=== PATIENT | female | born 1950 | race Caucasian/White ===

== ENCOUNTER 2021-05-06 06:31 | Outpatient (CLI) | payer MEDICARE ==
[~2021-05-06] VITALS: Ht 165 cm; Wt 60.5 kg
== END 2021-05-06 13:51 | disposition home or self-care (01) ==
LOC: PREOP 06:31
PROVIDERS: ATTEND Surgery
DX: Z01.818 Encounter for other preprocedural examination (principal)

== ENCOUNTER 2021-05-17 10:41 | Day surgery (SDC) | payer MEDICARE ==
[~2021-05-17] VITALS: Ht 165 cm; Wt 60.5 kg
[2021-05-17] VITALS (7 sets, daily range): BP systolic 85–144; BP diastolic 44–84
[2021-05-17] MEDS ORDERED: LACTATED RINGERS 1,000 ML IV STA (10:58)
[2021-05-17] MEDS ORDERED: LACTATED RINGERS 1,000 ML IV ONE (11:06)
[2021-05-17] MEDS ORDERED: PROPOFOL INJECTION 50 ML IV ONE (11:50)
--- NOTE | 2021-05-17 13:10 | Anesthesia-General Post-Op ---
MAC Patient Condition Mental Status/LOC: Same as Preop Cardiovascular: Satisfactory Nausea/Vomiting: Absent Respiratory: Satisfactory Pain: Controlled Complications: Absent Post Op Complications Complications None Follow Up Care/Instructions Patient Instructions None needed. Anesthesiology Discharge Order Discharge Order Patient is doing well, no complaints, stable vital signs, no apparent adverse anesthesia problems. No complications reported per nursing. JAVON HYDE CRNA May 17, 2021 13:10
--- NOTE | 2021-05-17 13:17 | Progress Note-Post Operative ---
Post-Operative Progess Note Surgeon (s)/Signal And Communications Maintainer (s) Surgeon MARU FUNES DO Signal And Communications Maintainer: MENDOZA Awan Pre-Operative Diagnosis + Cologuard Post-Operative Diagnosis rectal mass int hemorrhoids Procedure & Operative Findings Date of Procedure 05/17/21 Procedure Performed/Findings Colon with snare polypectomy Procedure note: After informed consent was obtained, the patient was brought to the endoscopy suite and placed in the bed in the left lateral decubitus position. She was administered IV sedation by the HIGHWAY PATROL PILOT, who then monitored her vitals the entire time, heart rate, blood pressure and pulse ox and the scope was inserted, started the colonoscopy. Pushed all the way into about 140 cm to get all the way to cecum, took a picture of the appendiceal orifice, noted the ileocecal valve and then slowly withdrew the scope, insufflating the circumferential tom looking the cecum, up the ascending colon to the hepatic flexure, then down the transverse colon, splenic flexure, into the descending colon, down into the sigmoid and finally into the rectum. In the rectum saw a mass or large polyp and elected to do hot snare to try and remove most of it. Took pictures and then retroflexed in the rectal vault, saw some minimal internal hemorrhoids and took a picture of this. The patient tolerated the procedure and she recovered in the endoscopy suite. Anesthesia Type IV sedation by HIGHWAY PATROL PILOT Estimated Blood Loss Estimated blood loss (mL): scant Specimens/Packing Specimens Removed rectal polyp MARU FUNES DO May 17, 2021 13:17
--- NOTE | 2021-05-17 13:18 | Endoscopy Discharge Instruct ---
Endo Procedure/Findings Findings 1.: Polyp 2.: Internal Hemorrhoids Discharge Instructions - Activity: You might feel a little sleepy until tomorrow. This is due to the medicine you received to relax you. Until tomorrow, you should: NOT drive a car, operate machinery or power tools. NOT drink any alcoholic beverages. NOT make any important decisions or sign importortant papers. Do not return to work until tomorrow, unless otherwise instructed. Resume previous activities tomorrow. Diet: Start by taking liquids. If you tolerate liquids, advance to solid food. 1.: Other Recommendation (Colonoscopy in 6-8 weeks) Notify Physician - If you experience excessive bleeding, unusual abdominal pain, fever, or chest pain, contact your doctor immediately. MARU FUNES DO May 17, 2021 13:18
== END 2021-05-17 13:40 | disposition home or self-care (01) ==
LOC: ENDO 10:41
PROVIDERS: ATTEND Surgery
DX: D12.8 Benign neoplasm of rectum (principal); R19.5 Other fecal abnormalities; K64.8 Other hemorrhoids; Z90.89 Acquired absence of other organs

== ENCOUNTER 2021-06-14 05:42 | Outpatient (CLI) | payer MEDICARE ==
[~2021-06-14] VITALS: Ht 165.1 cm; Wt 60.3 kg
== END 2021-06-14 12:44 | disposition home or self-care (01) ==
LOC: PREOP 05:42
PROVIDERS: ATTEND Surgery
DX: Z01.818 Encounter for other preprocedural examination (principal)

== ENCOUNTER 2021-06-21 08:31 | Day surgery (SDC) | payer MEDICARE ==
[~2021-06-21] VITALS: Ht 165.1 cm; Wt 60.3 kg
[2021-06-21] VITALS (8 sets, daily range): BP systolic 77–143; BP diastolic 45–84
[2021-06-21] MEDS ORDERED: LACTATED RINGERS 1,000 ML IV STA (08:39)
[2021-06-21] MEDS ORDERED: LACTATED RINGERS 1,000 ML IV ONE (08:49)
--- NOTE | 2021-06-21 09:08 | Progress Note-Pre Operative ---
Pre-Operative Progress Note H&P Reviewed The H&P was reviewed, patient examined and no changes noted. Time Seen by Provider: 09:06 Date H&P Reviewed: Jun 21, 2021 Time H&P Reviewed: 09:06 Pre-Operative Diagnosis: Large sigmoid polyp MARU FUNES DO Jun 21, 2021 09:08
[2021-06-21] MEDS ORDERED: MIDAZOLAM 2 MG/2 ML (VERSED) VIAL ONE (09:09)
[2021-06-21] MEDS ORDERED: PROPOFOL INJECTION 50 ML IV ONE (09:10)
--- NOTE | 2021-06-21 09:44 | Progress Note-Post Operative ---
Post-Operative Progess Note Surgeon (s)/Residential Treatment Counselor (s) Surgeon MARU FUNES DO Residential Treatment Counselor: MENDOZA Melgoza Pre-Operative Diagnosis Large rectal polyp Post-Operative Diagnosis same pending path Procedure & Operative Findings Date of Procedure 06/21/21 Procedure Performed/Findings Flex sig with snare removal of large polyp PROCEDURE NOTE: After informed consent was obtained, the patient was brought to the endoscopy suite, placed in bed in left lateral decubitus position. She was administered IV sedation by the INDUSTRIAL AERIAL INSTALLER who then monitored her vitals the entire time, heart rate, blood pressure and pulse ox and the scope was inserted. Immediately upon entering saw the large polyp and took a picture. Pushed up to just below splenic flexure and did not see anything else. Pulled back to the rectum about 10cm in and started removing the polyp with hot snare polypectomy. It was larger than a cm and had to take it in multiple pieces. Able to remove right down to the mucosa. I believe I got all of it and took a picture after. Then retroflexed and took picture of the internal hemorrhoids. Finally removed the scope The patient tolerated the procedure. She was recovered in endoscopy suite. Anesthesia Type IV sedation by INDUSTRIAL AERIAL INSTALLER Estimated Blood Loss Estimated blood loss (mL): scant Specimens/Packing Specimens Removed rectal polyp MARU FUNES DO Jun 21, 2021 09:44
--- NOTE | 2021-06-21 09:45 | Endoscopy Discharge Instruct ---
Endo Procedure/Findings Findings 1.: Polyp 2.: Internal Hemorrhoids Discharge Instructions - Activity: You might feel a little sleepy until tomorrow. This is due to the medicine you received to relax you. Until tomorrow, you should: NOT drive a car, operate machinery or power tools. NOT drink any alcoholic beverages. NOT make any important decisions or sign importortant papers. Do not return to work until tomorrow, unless otherwise instructed. Resume previous activities tomorrow. Diet: Start by taking liquids. If you tolerate liquids, advance to solid food. 1.: Colonoscopy in 1 year Notify Physician - If you experience excessive bleeding, unusual abdominal pain, fever, or chest pain, contact your doctor immediately. MARU FUNES DO Jun 21, 2021 09:45
--- NOTE | 2021-06-21 12:37 | Anesthesia-General Post-Op ---
MAC Patient Condition Mental Status/LOC: Same as Preop Cardiovascular: Satisfactory Nausea/Vomiting: Absent Respiratory: Satisfactory Pain: Controlled Complications: Absent Post Op Complications Complications None Follow Up Care/Instructions Patient Instructions None needed. Anesthesiology Discharge Order Discharge Order Patient is doing well, no complaints, stable vital signs, no apparent adverse anesthesia problems. No complications reported per nursing. OLYA OJEDA CRNA Jun 21, 2021 12:37
== END 2021-06-21 10:19 | disposition home or self-care (01) ==
LOC: ENDO 08:31
PROVIDERS: ATTEND Surgery
DX: D12.8 Benign neoplasm of rectum (principal); E78.00 Pure hypercholesterolemia, unspecified; Z79.899 Other long term (current) drug therapy; Z86.79 Personal history of other diseases of the circulatory system
CPT/HCPCS: 88305

== ENCOUNTER 2022-07-06 05:34 | Outpatient (CLI) | payer MEDICARE ==
[~2022-07-06] VITALS: Ht 165.1 cm; Wt 60.0 kg
[2022-07-06] MEDS ORDERED: BLAC200C3 PO (10:53)
[2022-07-06] MEDS ORDERED: MULT-178 PO (10:53)
[2022-07-06] MEDS ORDERED: TRIA10.8 NSEACH (10:53)
== END 2022-07-06 10:54 | disposition home or self-care (01) ==
LOC: PREOP 05:34
PROVIDERS: ATTEND Surgery
DX: Z01.818 Encounter for other preprocedural examination (principal)

== ENCOUNTER 2022-07-18 07:49 | Day surgery (SDC) | payer MEDICARE ==
[~2022-07-18] VITALS: Ht 165 cm; Wt 60.0 kg
[~2022-07-18 07:49] MED LIST: BLAC200C3 PO; MULT-178 PO; TRIA10.8 NSEACH
[2022-07-18] MEDS ORDERED: LACTATED RINGERS 1,000 ML IV STA (08:13)
[2022-07-18 08:20] VITALS: BP 158/78
[2022-07-18] MEDS ORDERED: PROPOFOL INJECTION 50 ML IV ONE (10:04)
[2022-07-18 10:40] VITALS: BP 83/48
[2022-07-18 10:45] VITALS: BP 102/50
--- NOTE | 2022-07-18 10:46 | Endoscopy Discharge Instruct ---
Endo Procedure/Findings Findings 1.: Polyp 2.: Internal Hemorrhoids Discharge Instructions - Activity: You might feel a little sleepy until tomorrow. This is due to the medicine you received to relax you. Until tomorrow, you should: NOT drive a car, operate machinery or power tools. NOT drink any alcoholic beverages. NOT make any important decisions or sign importortant papers. Do not return to work until tomorrow, unless otherwise instructed. Resume previous activities tomorrow. Diet: Start by taking liquids. If you tolerate liquids, advance to solid food. 1.: Colonscopy in 5 years Notify Physician - If you experience excessive bleeding, unusual abdominal pain, fever, or chest pain, contact your doctor immediately. MARU FUNES DO Jul 18, 2022 10:46
--- NOTE | 2022-07-18 10:46 | Progress Note-Post Operative ---
Post-Operative Progess Note Surgeon (s)/Chief Librarian Branch Or Department (s) Surgeon MARU FUNES DO Chief Librarian Branch Or Department: Corbin Brownlemuel, MSIII Pre-Operative Diagnosis Large rectal polyp Post-Operative Diagnosis Polyps int hemorrhoids Procedure & Operative Findings Date of Procedure 07/18/22 Procedure Performed/Findings Colonoscopy with hot bx Colonoscopy with snare PROCEDURE NOTE: After informed consent was obtained, the patient was brought to the endoscopy suite, placed in bed in left lateral decubitus position. She was administered IV sedation by the RN X RAY who then monitored her vitals the entire time, heart rate, blood pressure and pulse ox and the scope was inserted, pushed all the way to about 150 cm and pushed into the cecum. I took a picture of appendiceal orifice and noted the ileo-cecal valve. On the way in had noted some retained fecal materaial; was able to suction most up, but not all (took pictures). Then slowly withdrew the scope insufflating to look circumferentially at the tom starting in the cecum, up the ascending colon to the hepatic flexure, then down the transverse colon, to the splenic flexure and into the descending colon. I found a small flat polyp, that almost looked like it had an ulcerated middle. Elected to do a hot biopsy and took two bites; got most of the polyp. Continued down into the sigmoid and then into the rectal vault. Here I found a large almost pedunculated polyp that I wanted to completely remove; therefore, used the snare with cautery and able to get the entire polyp. Finally I retroflexed the scope and took a picture of the internal hemorrhoids. The patient tolerated the procedure. She was recovered in endoscopy suite. Recommended for repeat colonoscopy in 5 years. Anesthesia Type IV sedation by RN X RAY Estimated Blood Loss Estimated blood loss (mL): scant Specimens/Packing Specimens Removed Desc colon polyp rectal polyp MARU FUNES DO Jul 18, 2022 10:45
[2022-07-18 10:50] VITALS: BP 103/54
[2022-07-18 11:28] VITALS: BP 103/54
--- NOTE | 2022-07-18 14:05 | Anesthesia-General Post-Op ---
MAC Patient Condition Mental Status/LOC: Same as Preop Cardiovascular: Satisfactory Nausea/Vomiting: Absent Respiratory: Satisfactory Pain: Controlled Complications: Absent Post Op Complications Complications None Follow Up Care/Instructions Patient Instructions None needed. Anesthesiology Discharge Order Discharge Order Patient is doing well, no complaints, stable vital signs, no apparent adverse anesthesia problems. No complications reported per nursing. OLYA OJEDA CRNA Jul 18, 2022 14:05
== END 2022-07-18 11:26 | disposition home or self-care (01) ==
LOC: ENDO 07:49
PROVIDERS: ATTEND Surgery
DX: D12.4 Benign neoplasm of descending colon (principal); D12.8 Benign neoplasm of rectum; K64.8 Other hemorrhoids

== ENCOUNTER 2023-07-23 11:59 | Emergency (ER) | payer MEDICARE ==
[~2023-07-23] VITALS: Ht 162 cm; Wt 58.9 kg
[2023-07-23] MEDS ORDERED: NS IV 1000 ML 1,000 ML IV STA (12:23)
--- NOTE | 2023-07-23 12:23 | ED Abdominal Pain ---
General Chief Complaint: Abdominal/GI Problems Stated Complaint: AB PAIN Nursing Triage Note: ARRIVED VIA AMB WITH COMPLAINTS OF ABD PAIN STARTING YESTERDAY. Source of Information: Patient Exam Limitations: No Limitations History of Present Illness Date Seen by Provider: Jul 23, 2023 Time Seen by Provider: 12:12 Initial Comments 72-year-old female presents for right-sided abdominal pain, nausea and vomiting. Symptoms started last night. Emesis is nonbloody nonbilious. She does state that she has had decreased bowel movements and decreased urine output. She de nies any fevers or chills. Pain is described as sharp stabbing in her right lower abdomen without radiation. No obvious aggravating or alleviating factors. She is passing gas. She has not had any intra-abdominal surgeries. All other systems reviewed and negative except documented per HPI. Voice recognition software was used to help create this chart Allergies and Home Medications Allergies Coded Allergies: No Known Drug Allergies (Unverified , 05/17/21) Patient Home Medication List Home Medication List Reviewed: Yes Black Cohosh Root (Black Cohosh) 200 Mg Capsule, 200 MG PO DAILY, (Reported) Entered as Reported by: KAYLA OWUSU on 07/06/22 1053 Multivitamin (Multiple Vitamins) 1 Each Tablet, 1 EACH PO DAILY, (Reported) Entered as Reported by: KAYLA OWUSU on 07/06/22 1053 Triamcinolone Acetonide (Nasacort) 55 Mcg [place], 1 SPRAY NSEACH DAILY, (Reported) Entered as Reported by: KAYLA OWUSU on 07/06/22 1053 Review of Systems Review of Systems Constitutional: see HPI Past Vvjwvmh-Calegs-Jmzjeb Hx Patient Social History Tobacco Use?: No Substance use?: No Alcohol Use?: No Immunizations Up To Date First/Initial COVID19 Vaccinat: NO Second COVID19 Vaccination Octavio: NO Third COVID19 Vaccination Date: NO Seasonal Allergies Seasonal Allergies: Yes Past Medical History Surgeries: Yes (CARDIAC ABLATION) Tonsillectomy Respiratory: No Cardiac: Yes (HX ABLATION) Neurological: No Genitourinary: No Gastrointestinal: Yes Polyps Musculoskeletal: No Endocrine: No HEENT: No Cancer: No Psychosocial: No Integumentary: No Blood Disorders: No Physical Exam Vital Signs Vital Signs - First Documented 07/23/23 12:05 Temp 37.4 Pulse 66 Resp 16 B/P (MAP) 115/68 (84) Pulse Ox 98 O2 Delivery Room Air Capillary Refill : Less Than 3 Seconds Height/Weight/BMI Height: '" Weight: lbs. oz. kg; 22.00 BMI Method: General Appearance: WD/WN, no apparent distress HEENT: normal ENT inspection, pharynx normal Neck: non-tender, full range of motion Respiratory: chest non-tender, lungs clear, normal breath sounds, no respiratory distress, no accessory muscle use Cardiovascular: regular rate, rhythm, no murmur Gastrointestinal: normal bowel sounds, soft, tenderness (Tenderness palpation t he right mid and lower abdomen with voluntary guarding. No rebound tenderness. No mass organomegaly. No skin changes.) Extremities: normal capillary refill Neurologic/Psychiatric: alert, normal mood/affect Skin: normal color, warm/dry Progress/Results/Core Measures Results/Orders Lab Results Laboratory Tests Test 07/23/23 12:10 07/23/23 13:11 Range/Units White Blood Count 8.0 4.3-11.0 10^3/uL Red Blood Count 4.15 3.80-5.11 10^6/uL Hemoglobin 13.8 11.5-16.0 g/dL Hematocrit 41 35-52 % Mean Corpuscular Volume 98 80-99 fL Mean Corpuscular Hemoglobin 33 25-34 pg Mean Corpuscular Hemoglobin Concent 34 32-36 g/dL Red Cell Distribution Width 12.2 10.0-14.5 % Platelet Count 267 130-400 10^3/uL Mean Platelet Volume 9.9 9.0-12.2 fL Immature Granulocyte % (Auto) 0 % Neutrophils (%) (Auto) 88 H 42-75 % Lymphocytes (%) (Auto) 6 L 12-44 % Monocytes (%) (Auto) 5 0-12 % Eosinophils (%) (Auto) 0 0-10 % Basophils (%) (Auto) 0 0-10 % Neutrophils # (Auto) 7.1 1.8-7.8 10^3/uL Lymphocytes # (Auto) 0.5 L 1.0-4.0 10^3/uL Monocytes # (Auto) 0.4 0.0-1.0 10^3/uL Eosinophils # (Auto) 0.0 0.0-0.3 10^3/uL Basophils # (Auto) 0.0 0.0-0.1 10^3/uL Immature Granulocyte # (Auto) 0.0 0.0-0.1 10^3/uL Neutrophils % (Manual) 87 % Lymphocytes % (Manual) 9 % Monocytes % (Manual) 4 % Eosinophils % (Manual) 0 % Basophils % (Manual) 0 % Band Neutrophils 0 % Blood Morphology Comment NORMAL Sodium Level 132 L 135-145 MMOL/L Potassium Level 4.1 3.6-5.0 MMOL/L Chloride Level 99 98-107 MMOL/L Carbon Dioxide Level 20 L 21-32 MMOL/L Anion Gap 13 5-14 MMOL/L Blood Urea Nitrogen 20 H 7-18 MG/DL Creatinine 0.99 0.60-1.30 MG/DL Estimat Glomerular Filtration Rate 60 BUN/Creatinine Ratio 20 Glucose Level 143 H 70-105 MG/DL Calcium Level 9.8 8.5-10.1 MG/DL Corrected Calcium 8.5-10.1 MG/DL Total Bilirubin 0.4 0.1-1.0 MG/DL Aspartate Amino Transf (AST/SGOT) 41 H 5-34 U/L Alanine Aminotransferase (ALT/SGPT) 39 0-55 U/L Alkaline Phosphatase 71 40-136 U/L Total Protein 7.7 6.4-8.2 GM/DL Albumin 4.6 H 3.2-4.5 GM/DL Lipase 38 8-78 U/L Urine Color YELLOW Urine Clarity CLEAR Urine pH 7.0 5-9 Urine Specific [place] 1.015 L 1.016-1.022 Urine Protein 1+ H NEGATIVE Urine Glucose (UA) NEGATIVE NEGATIVE Urine Ketones NEGATIVE NEGATIVE Urine Nitrite NEGATIVE NEGATIVE Urine Bilirubin NEGATIVE NEGATIVE Urine Urobilinogen 0.2 < = 1.0 MG/DL Urine Leukocyte Esterase NEGATIVE NEGATIVE Urine RBC (Auto) 1+ H NEGATIVE Urine RBC 10-25 H /HPF Urine WBC 0-2 /HPF Urine Crystals NONE /LPF Urine Bacteria NEGATIVE /HPF Urine Casts NONE /LPF Urine Mucus NEGATIVE /LPF Urine Culture Indicated NO My Orders Orders - DANIELA SALVADOR DO Lipase (07/23/23 12:20) Ua Culture If Indicated (07/23/23 12:20) Ct Abdomen/Pelvis W (07/23/23 12:20) Cbc With Automated Diff (07/23/23 12:20) Comprehensive Metabolic Panel (07/23/23 12:20) Fentanyl Injection (Fentanyl Injection (07/23/23 12:30) Ondansetron Injection (Ondansetron Inj (07/23/23 12:30) Ns Iv 1000 Ml (Ns Iv 1000 Ml) (07/23/23 12:23) Manual Differential (07/23/23 12:10) Iohexol Injection (Omnipaque 350 Mg/Ml 1 (07/23/23 12:45) Received Contrast (Hold Metformin- Contr (07/23/23 12:45) Ns (Ivpb) 100 Ml (Sodium Chloride 0.9% 1 (07/23/23 12:45) Ketorolac Injection (Ketorolac Injection (07/23/23 13:45) Morphine Injection (Morphine Injection (07/23/23 13:34) Hydrocodone/Apap 5/325 Tablet (Hydrocod (07/23/23 13:45) Diphenhydramine Injection (Diphenhydram (07/23/23 14:00) Medications Given in ED Current Medications Medications Dose Ordered Sig/Hung Route Start Time Stop Time Status Last Admin Dose Admin Acetaminophen/ Hydrocodone Bitart 1 ea ONCE ONCE PO 07/23/23 13:45 07/23/23 13:46 DC 07/23/23 13:58 1 EA Diphenhydramine HCl 25 mg ONCE ONCE IVP 07/23/23 14:00 07/23/23 14:01 DC 07/23/23 13:56 25 MG Fentanyl Citrate 50 mcg ONCE ONCE IVP 07/23/23 12:30 07/23/23 12:31 DC 07/23/23 12:31 50 MCG Iohexol 75 ml ONCE ONCE IV 07/23/23 12:45 07/23/23 12:51 DC 07/23/23 13:00 67 ML Ketorolac Tromethamine 15 mg ONCE ONCE IVP 07/23/23 13:45 07/23/23 13:46 DC 07/23/23 13:48 15 MG Ondansetron HCl 4 mg ONCE ONCE IVP 07/23/23 12:30 07/23/23 12:31 DC 07/23/23 12:32 4 MG Sodium Chloride 100 ml ONCE ONCE IV 07/23/23 12:45 07/23/23 12:51 DC 07/23/23 13:00 100 ML Vital Signs/I&O 07/23/23 12:05 Temp 37.4 Pulse 66 Resp 16 B/P (MAP) 115/68 (84) Pulse Ox 98 O2 Delivery Room Air Blood Pressure Mean: 84 Departure Communication (Admissions) Patient is hemodynamically stable. Initially with significant pain in her right mid abdomen. Concern initially for some type of colitis, appendicitis. CT scan reveals likely kidney stone on that side. She is still making urine she has no evidence for UTI based on urinalysis. Labs are reassuring with normal chemistr y, CBC. Pain is controlled here in the emergency department after Toradol morphine, hydrocodone. Nausea is controlled with Zofran and Benadryl. Impression Primary Impression: Ureterolithiasis Disposition: HOME, SELF-CARE Condition: Stable Departure-Patient Inst. Referrals: JOSE HERNÁNDEZ DO (PCP) Primary Care Physician Patient Instructions: Kidney stones in adults Add. Discharge Instructions: Increase your fluids at home and rest. Take Flomax daily as prescribed. Use hydrocodone as needed for pain. This may make you drowsy so do not drive or make important decisions while taking it. Have given you Zofran which dissolves under your tongue as needed for nausea. I also recommend use Benadryl, 50 mg every 6 hours as needed for nausea. This will likely make you drowsy. Return to the emergency department for any severe pain is not controlled by the provided medications. Follow-up with your primary doctor for any nonemergent needs. All discharge instructions reviewed with patient and/or family. Voiced understanding. Scripts Tamsulosin HCl (Flomax) 0.4 Mg Cap 0.4 MG PO DAILY for 3 Days, #3 CAP Prov: DANIELA SALVADOR DO 07/23/23 Ondansetron (Ondansetron Odt) 8 Mg Tab.rapdis 8 MG SL Q6H PRN for NAUSEA/VOMITING for 3 Days, #12 TAB Prov: DANIELA SALVADOR DO 07/23/23 Hydrocodone/Acetaminophen (Hydrocodone-Acetamin 5-325 mg) 5 Mg-325 Mg Tablet 1 TAB PO Q4H PRN for PAIN-MODERATE (5-7) for 3 Days, #12 TAB Prov: DANIELA SALVADOR DO 07/23/23 DANIELA SALVADOR DO Jul 23, 2023 12:23
[2023-07-23 12:28] LABS: BASOPHILS % (AUTO) 0 % (0-10); EOSINOPHILS % (AUTO) 0 % (0-10); HEMATOCRIT 41 % (35-52); HEMOGLOBIN 13.8 g/dL (11.5-16.0); LYMPHOCYTES # (AUTO) 0.5 10^3/uL (1.0-4.0); LYMPHOCYTES % (AUTO) 6 % (12-44); MEAN CORPUSCULAR HEMOGLOBIN 33 pg (25-34); MEAN CORPUSCULAR HGB CONC 34 g/dL (32-36); MEAN CORPUSCULAR VOLUME 98 fL (80-99); MEAN PLATELET VOLUME 9.9 fL (9.0-12.2); MONOCYTES # (AUTO) 0.4 10^3/uL (0.0-1.0); MONOCYTES % (AUTO) 5 % (0-12); NEUTROPHILS # (AUTO) 7.1 10^3/uL (1.8-7.8); NEUTROPHILS % (AUTO) 88 % (42-75); PLATELET COUNT 267 10^3/uL (130-400)
[2023-07-23] MEDS ORDERED: ONDANSETRON INJECTION 4 MG/2 ML (SDV) IVP ONE (12:30)
[2023-07-23] MEDS ORDERED: fentaNYL INJECTION 100 MCG/2 ML VIAL IVP ONE (12:30)
[2023-07-23 12:36] LABS: ALBUMIN 4.6 GM/DL (3.2-4.5)
[2023-07-23 12:37] LABS: CHLORIDE 99 MMOL/L (98-107); POTASSIUM 4.1 MMOL/L (3.6-5.0); SODIUM 132 MMOL/L (135-145)
[2023-07-23 12:38] LABS: CALCIUM 9.8 MG/DL (8.5-10.1)
[2023-07-23 12:39] LABS: GLUCOSE 143 MG/DL (70-105); TOTAL PROTEIN 7.7 GM/DL (6.4-8.2)
[2023-07-23 12:40] LABS: CARBON DIOXIDE 20 MMOL/L (21-32)
[2023-07-23 12:41] LABS: BILIRUBIN,TOTAL 0.4 MG/DL (0.1-1.0)
[2023-07-23 12:42] LABS: ALKALINE PHOSPHATASE 71 U/L (40-136)
[2023-07-23 12:43] LABS: BAND NEUTROPHILS 0 %; BASOPHILS % (MANUAL) 0 %; CREATININE SERUM 0.99 MG/DL (0.60-1.30); EOSINOPHILS % (MANUAL) 0 %; GFR ESTIMATED 60; LYMPHOCYTES % (MANUAL) 9 %; MONOCYTES % (MANUAL) 4 %; NEUTROPHILS % (MANUAL) 87 %; RBC MORPH NORMAL
[2023-07-23 12:44] LABS: BUN/CREATININE RATIO 20
[2023-07-23] MEDS ORDERED: NS 100 ML (IVPB) BAG IV ONE (12:45)
[2023-07-23] MEDS ORDERED: IOHEXOL 350 MG/ML 100 ML (OMNIPAQUE 350) VIAL IV ONE (12:45)
[2023-07-23] MEDS ORDERED: HOLD METFORMIN - RECEIVED CONTRAST 20 ML VIAL IV SCH (12:45)
[2023-07-23 12:46] LABS: ALANINE AMINOTRANSFERASE 39 U/L (0-55); LIPASE 38 U/L (8-78)
--- NOTE | 2023-07-23 13:25 | Diagnostic Imaging Report ---
PROCEDURE: CT abdomen and pelvis with contrast. TECHNIQUE: Multiple contiguous axial images were obtained through the abdomen and pelvis after administration of intravenous contrast. Auto Exposure Controls were utilized during the CT exam to meet ALARA standards for radiation dose reduction. All CT scans use one or more of the following dose optimizing techniques: automated exposure control, MA and/or KvP adjustment based on patient size and exam type or iterative reconstruction. INDICATION: Right-sided abdominal pain, acute onset. COMPARISON: None available. FINDINGS: Minimal bibasilar scarring and/or atelectasis. Tiny hiatal hernia. The liver, spleen, adrenal glands, and pancreas are unremarkable. Punctate nonobstructing left renal calculus. The left kidney and ureter are otherwise unremarkable. A 0.6 cm calculus is identified within the right ureteropelvic junction. This is resulting in moderate right-sided hydronephrosis with significant adjacent right perinephric fat stranding and fluid. This fluid extends down the right paracolic gutter. Moderate vascular calcifications without aneurysmal dilatation of the abdominal aorta. The appendix is unremarkable. The urinary bladder is unremarkable. The uterus and adnexal structures are unremarkable for age. Moderate amount of stool within the proximal to mid colon. No abnormally dilated loops of small bowel. No significant adenopathy or free air. Small amount of free fluid. Scattered osseous degenerative changes without acute osseous abnormality. IMPRESSION: 0.6 cm calculus within the right ureteropelvic junction with resultant moderate right-sided hydronephrosis and obstructive uropathy with a significant amount of adjacent right perinephric fat stranding and free fluid. Tiny nonobstructing left renal calculus. Tiny hiatal hernia. Moderate amount of stool within the proximal to mid colon. Dictated by: Dictated on workstation # [id number]
[2023-07-23] MEDS ORDERED: morphine INJ 10 MG/ML 1ML (SYR OR VIAL) IVP STA (13:34)
[2023-07-23 13:37] LABS: BILIRUBIN,URINE NEGATIVE (NEGATIVE); CLARITY,URINE CLEAR; COLOR,URINE YELLOW; GLUCOSE, URINE (UA) NEGATIVE (NEGATIVE); KETONES,URINE NEGATIVE (NEGATIVE); NITRITE,URINE NEGATIVE (NEGATIVE); PROTEIN,URINE 1+ (NEGATIVE)
[2023-07-23 13:38] LABS: BACTERIA,URINE NEGATIVE /HPF; LEUKOCYTE ESTERASE ,URINE NEGATIVE (NEGATIVE); WBC,URINE 0-2 /HPF
[2023-07-23] MEDS ORDERED: HYDROcodone/ACETAMINOPHEN 5 MG/325 MG TABLET PO ONE (13:45)
[2023-07-23] MEDS ORDERED: KETOROLAC INJ 15 MG/ML VIAL IVP ONE (13:45)
[2023-07-23] MEDS ORDERED: diphenhydrAMINE INJ 50 MG/ML VIAL IVP ONE (14:00)
[2023-07-23] MEDS ORDERED: ONDA8TAB13 SL (14:15)
[2023-07-23] MEDS ORDERED: TMSL.4C PO (14:15)
[2023-07-23] MEDS ORDERED: ACHD5005 PO (14:15)
[2023-07-23 14:29] VITALS: BP 131/76
== END 2023-07-23 14:29 | disposition home or self-care (01) ==
LOC: EDUNIT# 11:59 → ER 12:01
DX: N20.1 Calculus of ureter (principal); Z28.310 Unvaccinated for COVID-19
CPT/HCPCS: 36415; 74177; 80053; 81000; 83690; 85007; 85027